=== PATIENT | female | born 1965 | race Caucasian/White ===

== ENCOUNTER 2016-06-20 18:39 | Inpatient (IN) | payer OTHER ==
[~2016-06-20] VITALS: Ht 170.2 cm; Wt 65.8 kg
[2016-06-20] MEDS ORDERED: LORAZEPAM 0.5 MG TABLET PO PRN (20:30)
[2016-06-20] MEDS ORDERED: ACETAMINOPHEN 325 MG TABLET PO PRN (20:30)
[2016-06-20] MEDS ORDERED: MAG HYDROX/AL HYDROX/SIMETH 30 ML UDC PO PRN (20:30)
[2016-06-20] MEDS ORDERED: MAGNESIUM HYDROXIDE 30 ML UDC PO PRN (20:30)
[2016-06-20] MEDS ORDERED: ZOLPIDEM TARTRATE 5 MG TABLET PO PRN (20:30)
--- NOTE | 2016-06-20 21:00 | NUR ---
GPS RN ADMITTED NOTES ADMITTED THIS 50 Y/O FEMALE FROM [facility], PT. CAME TO THE UNIT VIA STRETCHER ACCOMPANIED VIA 2 PARAMEDICS PT. IS ON 5150 HOLD FOR DANGER TO HER SELF PER HOLD THAT SHE HAS A PLAN TO GRAB RAZOR AND CUT HER WRISTS . PT. WAS UNCOOPERATIVE COMBATIVE AGGRESSIVE ANXIOUS , MENTAL HX OF BIPOLAR MOOD DISORDERS, AND MEDICAL HX OF HTN , PT . REFUSED TO SKIN/ BODY ASSESSMENT AND PT STATED MY SKIN IS CLEAR I DONT WANT TO CHECK IT , ENCOURAGED FOR SKIN ASSESSMENT PT. STILL REFUSED , BOTH MD AWARE OF NEW ADMISSION NEW ORDERS RECEIVED AND CARRIED OUT, REORIENT TO UNIT POLICES AND CONTRABAND CHECKS , ENCOURAGED PT. TO BE VERBALIZE FEELING AND CONCERN TO STAFF , WILL CONTINUE TO MONITOR FOR SAFETY AND BEHAVIOR .
[2016-06-20] MEDS ORDERED: CLIN300C97 (21:10)
[2016-06-20] MEDS ORDERED: METO50TA3 PO (21:10)
[2016-06-20] MEDS ORDERED: DICY10CA37 (21:10)
[2016-06-20] MEDS ORDERED: OXYC-163 (21:10)
[2016-06-20] MEDS ORDERED: OMEP20CA10 (21:10)
[2016-06-20] MEDS ORDERED: OXYC-164 PO (21:10)
[2016-06-20] MEDS ORDERED: GABA-532 (21:10)
[2016-06-20] MEDS ORDERED: VENL75CA56 (21:10)
[2016-06-20] MEDS ORDERED: DICY20TA11 PO (21:10)
[2016-06-20] MEDS ORDERED: LIDO35.4 (21:10)
[2016-06-20] MEDS ORDERED: [UNRECOGNIZED DRUG - CODE] (21:10)
[2016-06-20] MEDS ORDERED: ONDA-25 (21:10)
[2016-06-20] MEDS ORDERED: MORP15TA7 PO (21:10)
[2016-06-20] MEDS ORDERED: DICL100G26 (21:10)
[2016-06-20 22:00] VITALS: BP 130/80
[2016-06-20] MEDS ORDERED: METOPROLOL TARTRATE 50 MG TABLET PO SCH (22:30)
[2016-06-20] MEDS ORDERED: METOPROLOL TARTRATE 50 MG TABLET ONE (22:38)
--- NOTE | 2016-06-20 23:00 | NUR ---
GPS RN NOTES ; LOPRESSOR 50 MG PO GIVEN CHARGE NURSE MADE AWARE
[2016-06-21 04:59] VITALS: BP 130/94
[2016-06-21] MEDS ORDERED: oxyCODONE/APAP (5/325 MG) 1 UDTAB TABLET ONE (05:55)
[2016-06-21] MEDS: oxyCODONE/APAP (5/325 MG) 1 UDTAB TABLET PO PRN (06:05)
--- NOTE | 2016-06-21 06:05 | NUR ---
GPS RN NOTES ; GPS RN NOTES ; PERCOCET 5/325 MG PO GIVEN CHARGE NURSE MADE AWARE
[2016-06-21 07:38] LABS: ALBUMIN 3.4 g/dL (3.4-5.0); BILIRUBIN,TOTAL 0.5 mg/dL (0.2-1.0); CREATININE 0.9 mg/dL (0.6-1.3); POTASSIUM 4.1 mmol/L (3.5-5.1); TOTAL PROTEIN, SERUM 6.7 g/dL (6.4-8.2)
[2016-06-21 08:29] VITALS: BP 109/73
[2016-06-21] MEDS: GABAPENTIN 100 MG CAPSULE PO SCH ×3 (08:39→17:00)
[2016-06-21] MEDS: METOPROLOL TARTRATE 50 MG TABLET PO SCH ×2 (08:40→20:57)
[2016-06-21] MEDS: DICYCLOMINE HCL 10 MG CAPSULE PO SCH ×4 (08:40→20:57)
[2016-06-21] MEDS ORDERED: LIDOCAINE 5% OINT 35.44 GM TUBE TP SCH (09:00)
[2016-06-21] MEDS: MORPHINE SULFATE SR 15 MG TABLET.SA PO PRN (13:43)
--- NOTE | 2016-06-21 13:43 | NUR ---
GPS/RN PATIENT REPORTS 10/10 BACK PAIN, ADMINISTERED MORPHINE SULFATE 15MG ORDERED, WILL CONTINUE TO MONITOR.
[2016-06-21 16:00] VITALS: BP 112/74
--- NOTE | 2016-06-21 16:54 | NUR ---
GPS/RN NEW ORDER PER DR OCHOA. AMBIEN 5MG PO HS PRN, ATIVAN 0.5 PO Q 6 HOURS WITH 3 DOSES MAXIMUM PER DAY. ORDERS INPUTTED IN SYSTEM. Addendum: 06/21/16 at 1701 by MATILDE VARGAS RN ORDERS PUT IN BY SUE Diaz
--- NOTE | 2016-06-21 17:36 | NUR ---
GPS/RN PATIENT REFUSED 1700 MEDICATIONS X 3, EXPLAINED RISKS AND BENEFITS BUT CONTINUES TO REFUSE, WILL CONTINUE TO ENCOURAGE TO COMPLY WITH MD REGIMEN.
[2016-06-21 20:49] VITALS: BP 122/71
[2016-06-21] MEDS: LORAZEPAM 0.5 MG TABLET PO PRN (20:53)
[2016-06-21] MEDS: MIRTAZAPINE 15 MG TABLET PO SCH (20:55)
--- NOTE | 2016-06-21 20:58 | NUR ---
PT . C/O ANXIETY ATIVAN 0.5 MG PO PRN GIVEN PER PT. REQUEST
--- NOTE | 2016-06-21 20:59 | NUR ---
GPS/RN PATIENT REFUSED DICYCLOMINE 20 MG @ 2100 MEDICATIONS X 3, EXPLAINED RISKS AND BENEFITS BUT CONTINUES TO REFUSE, WILL CONTINUE TO ENCOURAGE TO COMPLY WITH MD REGIMEN.
[2016-06-22] MEDS: ZOLPIDEM TARTRATE 5 MG TABLET PO PRN ×2 (01:49→22:25)
--- NOTE | 2016-06-22 01:50 | NUR ---
pt. c/o insomnia Ambien 5 mg po prn given per pt. request
[2016-06-22] MEDS: MORPHINE SULFATE SR 15 MG TABLET.SA PO PRN ×2 (03:52→16:18)
[2016-06-22 08:00] VITALS: BP 101/63
[2016-06-22] MEDS: GABAPENTIN 100 MG CAPSULE PO SCH ×3 (09:00→16:18)
[2016-06-22] MEDS: DICYCLOMINE HCL 10 MG CAPSULE PO SCH ×4 (09:00→21:00)
[2016-06-22] MEDS: METOPROLOL TARTRATE 50 MG TABLET PO SCH ×2 (09:00→21:00)
[2016-06-22] MEDS: LORAZEPAM 0.5 MG TABLET PO PRN ×2 (12:09→17:50)
--- NOTE | 2016-06-22 12:11 | NUR ---
Initial discharge plan: Pt. sleeps in her car which is parked at [facility], where she was transferred from. Pt. has no where to go, no family support, and has only $430/monthly income from [employer]. Pt. refuses placement at this time and says she will return to her car. SW will follow up with MD and pt. and will help form safe and proper discharge.
[2016-06-22 15:48] VITALS: BP 102/63
--- NOTE | 2016-06-22 17:13 | NUR ---
UR update:RAINA faxed initial (H&Ps, med list, 4021 and facesheet) and updated clinicals to DRISS Kern with [facility] [phone]. FAX [phone] AUTHORIZATION# [id number].
[2016-06-22 19:59] VITALS: BP 104/65
[2016-06-22] MEDS: MIRTAZAPINE 15 MG TABLET PO SCH (21:14)
--- NOTE | 2016-06-22 21:14 | NUR ---
GPS RN NOTES ; PT. SELECTIVE WITH MEDS PT. REFUSED BENTYL 20 MG PO , METOPROLOL 50 MG ENCOURAGED X3 STILL REFUSED , EXPLAIN RISKS AND BENEFITS STILL REFUSED
[2016-06-23] MEDS: LORAZEPAM 0.5 MG TABLET PO PRN ×3 (01:22→20:03)
--- NOTE | 2016-06-23 01:22 | NUR ---
GPS RN NOTE, PATIENT HAS A COMPLAINT OF FEELING ANXIOUS AND WOULD LIKE MEDICATION AT THIS TIME. PATIENT VITAL SIGNS ARE STABLE. GAVE ATIVAN 0.5 MG PO Q6HR PRN ORDERED. WILL REASSESS FOR ANXIETY AND I WILL CONTINUE TO MONITOR THIS PATIENT.
[2016-06-23] MEDS: MORPHINE SULFATE SR 15 MG TABLET.SA PO PRN ×2 (05:22→17:41)
[2016-06-23 08:20] VITALS: BP 116/70
[2016-06-23] MEDS: GABAPENTIN 100 MG CAPSULE PO SCH ×3 (08:39→16:14)
[2016-06-23] MEDS: DICYCLOMINE HCL 10 MG CAPSULE PO SCH ×5 (08:42→20:41)
[2016-06-23] MEDS: METOPROLOL TARTRATE 50 MG TABLET PO SCH ×2 (08:42→20:36)
--- NOTE | 2016-06-23 08:50 | NUR ---
GPS/RN PATIENT ANXIOUS, RESTLESS, AGITATED, REQUESTING ATIVAN PO, ADMINISTERED ORDERED, WILL CONTINUE TO MONITOR
[2016-06-23 15:30] VITALS: BP 101/65
[2016-06-23] MEDS: oxyCODONE/APAP (5/325 MG) 1 UDTAB TABLET PO PRN ×2 (16:15→23:01)
--- NOTE | 2016-06-23 16:15 | NUR ---
GPS/RN PATIENT REPORTS 10/10 BACK PAIN, ADMINISTERED PERCOCET 5/325 1 TAB, WILL CONTINUE TO MONITOR.
--- NOTE | 2016-06-23 16:42 | NUR ---
UR update:RAINA faxed updated clinicals to DRISS Kern with [facility] [phone]. FAX [phone] AUTHORIZATION# [id number].
--- NOTE | 2016-06-23 17:45 | NUR ---
GPS/RN PATIENT REPORTS 10/10 BACK PAIN, ADMINISTERED MORPHINE SULFATE 15MG ORDERED, WILL CONTINUE TO MONITOR.
[2016-06-23 19:57] VITALS: BP 100/67
[2016-06-23 20:00] VITALS: BP 100/67
[2016-06-23] MEDS: ZOLPIDEM TARTRATE 5 MG TABLET PO PRN (20:37)
[2016-06-23] MEDS: MIRTAZAPINE 15 MG TABLET PO SCH (20:37)
[2016-06-24] MEDS: MORPHINE SULFATE SR 15 MG TABLET.SA PO PRN (06:09)
[2016-06-24] MEDS: DICYCLOMINE HCL 10 MG CAPSULE PO SCH ×3 (08:05→13:00)
[2016-06-24] MEDS: GABAPENTIN 100 MG CAPSULE PO SCH ×2 (08:06→13:38)
[2016-06-24] MEDS: METOPROLOL TARTRATE 50 MG TABLET PO SCH (08:06)
[2016-06-24 08:26] VITALS: BP 115/73
--- NOTE | 2016-06-24 09:51 | NUR ---
RAINA called DRISS Kern with [facility] [phone] FAX [phone], to inform her that assigned SW was out today and that currently, there are no new clinicals to fax. RAINA will fax daily clinical when it becomes available. RAINA left contact information. RAINA will follow up.
--- NOTE | 2016-06-24 10:44 | NUR ---
RAINA called DRISS Kern with [facility], FAX [phone], to inquire about aftercare appts. She did not answer and RAINA left her contact information and stated she was requesting aftercare follow up appts. RAINA will follow up.
[2016-06-24] MEDS: oxyCODONE/APAP (5/325 MG) 1 UDTAB TABLET PO PRN (12:33)
--- NOTE | 2016-06-24 14:07 | NUR ---
UR Update: RAINA faxed updated clinicals to DRISS Kern with [facility], FAX [phone]. RAINA also spoke with her about arranging aftercare appts. She stated that psychiatrist can write an order for patient to follow up with a psychiatrist and discharge planning team will contact the SW. RAINA informed her that per psychiatrist, patient is being discharged today and is picking her up. RAINA faxed order sheet for psychiatrist to Concha and she stated that she will follow up and have her discharge team contact the patient. Nurse obtained current phone numbers for the patient and provided these to Concha. RAINA also provided patient with homeless resources including shelters, where to obtain showers and meals, etc. Patient also provided with resources to [facility] and [facility] and [facility]. AUTHORIZATION# [id number].
--- NOTE | 2016-06-24 14:50 | NUR ---
GPS RN: DISCHARGE ORDER RECEIVED FROM DR. OCHOA. PATIENT IS A/O X4, AMBULATES WITH STEADY GAIT, ABLE TO MANAGE CC NEEDS. PATIENT CONDITION IS STABLE FOR DISCHARGE, VS STABLE. PATIENT DENIES SUICIDAL IDEATION AT THE TIME OF DISCHARGE. ALL BELONGINGS RETURNED TO THE PATIENT. EDUCATIONAL EXIT CARE PRINTED, SIGNED AND PROVIDED TO THE PATIENT WITH PRESCRIPTIONS FOR PSYCH MEDICATIONS. PATIENT STATES HAS A FULL SUPPLY OF THE REST OF HER MEDICATIONS AND DOES NOT NEED A PRESCRIPTION FOR THEM. PATIENT PICKED UP BY THE [employer] [employer] ([phone]), LEFT VIA PRIVATE CAR.
--- NOTE | 2016-06-24 14:53 | NUR ---
RAINA called the APS Hotline at [phone] and spoke to Stuart. Per Stuart, APS report can be filed due to patient's mental illness. SW informed him that patient disclosed that her makes $70,000/year but that they have been living out of his car. She stated to nurse that is getting paid today but wants to be discharged so that he does not use it to buy drugs. RAINA spoke to Karen from APS who assisted SW with making report. Notified her of the above information. APS report was created with APS Intake ID of [id number]. Provided telephone numbers to KAREN and APS will follow up. Karen instructed SW to fill out [id number] form. RAINA filled out [id number] form and mailed it out to [address] [place] [address] [facility], [place] [address]. Left at front end loader operator for outgoing mail.
--- NOTE | 2016-06-24 15:27 | NUR ---
Discharge Note: Patient was discharged back to her car with her . Per , car does not stay at any specific location. After care appts will be scheduled per the insurance and RAINA faxed the order to DRISS Kern with [facility], FAX [phone] who stated that they will contact the patient to follow up. RAINA obtained current telephone numbers for patient and her (pt: [phone]/: [phone]). Patient will discuss substance abuse with her assigned psychiatrist. Narcotics Anonymous meeting information was given to the patient. Meeting location: [address] [id number] Downstairs every Monday at 7pm. SW also provided patient with homeless resources including shelters, where to obtain showers and meals, etc. Patient also provided with resources to [facility] and [facility] and [facility]. Patient denies current suicidal ideation. Patient's mood and affect were appropriate and patient was agreeable with the discharge plan. She continued to refuse placement. agreed to follow up with filling patient's prescriptions. Facilitated info to IDT team who are in agreement with DC arrangement. The multidisciplinary form wad done, printed, signed, and given to the patient.
== END 2016-06-24 14:50 | disposition home or self-care (01) | DRG 885 ==
LOC: GPS 19:50
PROVIDERS: ADMIT Psychiatry & Neurology Psychosomatic Medicine
DX: F33.2 Major depressive disorder, recurrent severe without psychotic features (principal); F11.20 Opioid dependence, uncomplicated; K21.9 Gastro-esophageal reflux disease without esophagitis; I10 Essential (primary) hypertension; F41.9 Anxiety disorder, unspecified; D64.9 Anemia, unspecified; Z59.0 Homelessness; F19.90 Other psychoactive substance use, unspecified, uncomplicated; Z86.73 Personal history of transient ischemic attack (TIA), and cerebral infarction without residual deficits; G89.29 Other chronic pain; F41.1 Generalized anxiety disorder; G89.4 Chronic pain syndrome
CPT/HCPCS: 36415; 80048-TC; 80053-TC